=== PATIENT | female | born 1975 ===

== ENCOUNTER 2017-09-26 16:07 | Inpatient (IN) | payer MEDICAID, SELFPAY ==
[2017-09-26] MEDS ORDERED: Lactated Ringer's 1,000 ML IV ONE (17:25)
[2017-09-26 17:56] LABS: SQUAMOUS EPITHIAL 2 /hpf (0-5); URINE BILIRUBIN NEGATIVE (NEGATIVE); URINE BLOOD NEGATIVE (NEGATIVE); URINE CLARITY Clear (Clear); URINE COLOR Yellow (YELLOW); URINE GLUCOSE (UA) NORMAL (Normal); URINE LEUKOCYTE ESTERASE 2+ Leu/uL (Negative); URINE PROTEIN NEGATIVE (NEGATIVE); URINE UROBILINOGEN NORMAL mg/dL (0.2-1.0)
[2017-09-26] MEDS ORDERED: Lactated Ringer's 1,000 ML IV SCH (18:30)
[2017-09-26] MEDS ORDERED: Sodium Citrate/Citric Acid 15 ml Sol PO ONE (19:10)
[2017-09-26] MEDS ORDERED: cefOXitin IV 2 gm in Dextrose 2 GM/50 ML BAG IVPB ONE (19:10)
[2017-09-26 19:38] LABS: BASO % 0.3 % (0.0-2.0); EOS # 0.1 K/uL (0.0-0.7); EOS % 1.2 % (0.0-4.0); HEMOGLOBIN 10.7 g/dL (11.0-16.0); LYMPH % 18.4 % (20.0-40.0); MEAN CELL VOLUME 91.5 fL (81.0-99.0); MEAN CORPUSCULAR HEMOGLOBIN 30.8 pg (27.0-31.0); MEAN CORPUSCULAR HGB CONC 33.7 g/dL (33.0-37.0); MEAN PLATELET VOLUME 10.7 fL (7.2-11.7); MONO # 0.8 K/uL (0.0-0.8); NEUT # 7.9 K/uL (1.8-7.0); NEUT % 73.1 % (50.0-75.0); NRBC % 0.1 % (0.0-2.0); RBC 3.48 Mil/uL (3.80-5.20); RED CELL DISTRIBUTION WIDTH 13.4 % (11.5-14.5); WHITE BLOOD COUNT 10.8 K/uL (4.8-10.8)
--- NOTE | 2017-09-26 19:46 | OBADHP ---
Datetime: 09/26/2017 17:36 IP Chief Complaint Other: Previous del with C/S; AMA; UTI; Rh(-) Admit Comment, IP Provider: [place] [id number] Patient is a 42 y.o. , LMP unsure, PHIL 10/07/17, EGA 38w 3d by sono 07/24/17 at 29w 2d, c/o c tx; onset 3 days ago, stronger as of 0130 hours, pain scale 8/10 and occurring every 20 minutes. (+) AFM; denies LOF, VB. care: [facility]; late registrant at 26+ weeks; AMA; h/o delive ry with previous C/S. P Ob: x 2: both females, 1993, 7 1/2lb. 1995, 8lb; both, [place]. C/S, 2000, "6months", male, 2lb; also in [facility]. Spont Ab x 2: 2010, 2 mnths, 2017, 4 months, both with D_C. P PUMPER GAGER: 11 x monthly x 3. Denies h/o STIs, myomata, abnormal Pap or ovarian cysts. PMH: denies PSH: C/S x 2; D_C x 2; 2010, bilateral breast implants NKDA Meds: PNV Soc Hx: denies tobacco, illicit drug or EtOH use. With FOB x 2 years (he is in [place]). Amara dill's children also in [place]. Lives with a friend. Unemployed Fam Hx: Mother alive 71 y.o. HTN. Father alive 74 - prostate cancer. Pat aunt - h/o filiberto st cancer. P.E.: as above. WD in obvious discomfort with contractions. Awake, alert, oriented to time, person and place. Pleasant and cooperative Assessment: 42 y.o. P2123, 38w 6d, by third trimestre ultrasound, late registrant. AMA. H/O preter m delivery with C/S. Ultrasound noted for anterior placenta; placental lakes noted - no clinical sign ificance. Rh(-), s/p rhogam 07/31/17. UTI - diagnosed during visit 09/25/17; not yet started p.o. antibiotics. Category 1 tracing. Patient is clinically stable. Plan: 1) IVFs 2) U/A 3) Observe Addendum: 1915 hours - U/A: leuk esterase 3+; ketones 1+ - patient still c/o Ctx - pain scale 8/10. Abdomen is firm to palpaiton with each contraction. Deo e D/W MFM, Dr. Nuno: he cofirms placental lakes is of no significance; and recommends delivery a t this time. Briseyda Britt R.N. now served as casey saw operator Assessment: 42 y.o. P2123, 38w 6d, prev C/S x 1 with previous delivery; uterine ctx - not improved with hydration - for repeat C/S. AMA; Rh(-). UTI. Patient desires permanent sterilization: papers signed 07/31/17 and reaffirmed today. R/B/C of procedures discussed; patient expressed an under standing and her questions were answered. Consents signed, dated, witnessed and placed in chart. Cat egory 1 tracing. Clinically stable. Plan: 1) Admit 2) NPO 3) IVFs 4) continuous EFM 5) Abdominal prep 6) Owusu 7) Mefoxin, now and total of 3 doses 8) Notify anesthesia 9) Notify peds 10) call center nurse to O.R. Pelvic Type - PN: Adequate Extremities - PN: Normal Abdomen - PN: Abnormal Back - PN: Normal Breast - PN: Normal Lungs - PN: Normal Heart - PN: Normal Thyroid - PN: Not Done Neurologic - PN: Normal HEENT - PN: Normal General - PN: Normal Presentation-Admit: Vertex FHR - Baseline A Provider: 135 Contraction Comments Provider: irregular Comments, ACOG Physical Exam: Skin: (+) tattooes: left clavicle, lower abdomen. Breasts: no scars (scars from breast inplants are in the axillae, bilaterally) Abdomen: Gravid. Firm with contractions. Non tender when relaxed. Healed mini midline vertical ski n incision. Fundal height 34 cm All other systems reviewed and are negative. Gestation - Est Wks by US: 38w 3d IP Hx Assessment: The History has been Reviewed and is Current Vital Signs Provider: Reviewed; Within Normal Limits IP Chief Complaint: Uterine contractions NICHD Variability Prov Fetus A: Moderate 6-25bpm NICHD Accel Fetus A IP Provider: [id number] FHR Category Provider Fetus A: Category I NICHD Decel Fetus A IP Provider: None Dilatation, Provider: FT Effacement, Provider: 40 Station, Provider: -3 Genitourinary Exam: Normal DTRs - PN: Normal EGA AdmitDate IP: 38.3 IP Adm Impression: Term, intrauterine ; No Active Labor; Intact Membranes IP Admit Plan: Admit to unit; Initiate Section protocol
[2017-09-26 19:53] LABS: ALB/GLOB RATIO 1.2 (1.0-2.1); ALBUMIN 3.5 g/dL (3.5-5.0); ALT/SGPT 25 U/L (9-52); AST/SGOT 27 U/L (14-36); BLOOD UREA NITROGEN 6 mg/dL (7-17); CALCIUM 8.6 mg/dl (8.6-10.4); GFR AFRICAN-AMERICAN > 60; GFR NON-AFRICAN AMERICAN > 60
[2017-09-26] MEDS ORDERED: Sodium Citrate/Citric Acid 15 ml Sol ONE (20:02)
[2017-09-26] MEDS ORDERED: cefOXitin IV 2 gm in Saline 2 GM/50 ML BAG IVPB ONE (20:02)
[2017-09-26] MEDS ORDERED: Oxytocin 20 units in LR 2,000 ML IV ONE (20:04)
[2017-09-26] MEDS ORDERED: Morphine 1 mg/ml preservative-free Inj(Duramorph) ONE (20:57)
[2017-09-26] MEDS ORDERED: Midazolam 2 MG/2 ML VIAL ONE ×2 (22:00→22:06)
[2017-09-26] MEDS ORDERED: Oxycodone/Acetaminophen 5/325 mg Tab PO PRN ×2 (22:55)
[2017-09-26] MEDS ORDERED: Potassium Chloride 20 mEq ER Tab PO SCH (23:15)
--- NOTE | 2017-09-26 23:16 | PCM.SURG1 ---
Surgeon's Initial Post Op Note - Surgeon's Notes Surgeon: Babita Mandujano MD Field Coil Winder: Eric Patterson MD Type of Anesthesia: Spinal Anesthesia Administered By: Julita Reed MD Pre-Operative Diagnosis: 38 weeks 6 days; uterine contractions; previous section; previous delivery; advanced maternal age; Rh (-) Operative Findings: Live male , SAJI position, 's 7/8; weight 6lb 11oz. Cord pH 7.22. Normal uterus; normal fallopian tubes and ovaries, bilaterally. Post-Operative Diagnosis: Same; S/P bilateral tubal ligatoin Operation Performed: LTCS; modified Bea procedure Specimen/Specimens Removed: Right and left fallopian tubes Estimated Blood Loss: EBL {In ML}: 800 (U.O. 150 mL; IVFss 2,000 mL) Blood Products Given: N/A Drains Used: No Drains Post-Op Condition: Good Date of Surgery/Procedure: 09/26/17 Time of Surgery/Procedure: 22:30
--- NOTE | 2017-09-26 23:29 | OBDS ---
DELIVERY PERSONNEL Delivery Doctor: Abiodun Mandujano MD Scrub Nurse: Freda Buenrostro OBT Spar Finisher: Christina Britt RN Anesthesiologist: Lourdes Reed MD MATERNAL INFORMATION Delivery Anesthesia: Spinal Medications in Delivery: Pitocin Estimated Blood Loss (ml): 800 Placenta Cultured: No Maternal Complications: None RN Comments: live baby boy born via repeat c/section Provider Comments: Uncomplicated repeat C/S with BTL; live male , 's 7/8. Weight 6lb 110 z. LABOR SUMMARY EDC: 10/07/2017 00:00 No. Babies in Womb: 1 Attempted: No Labor Anesthesia: None LABOR INFORMATION Reason for Induction: Not Applicable Onset of Labor: 09/26/2017 14:00 Oxytocin: N/A Group B Beta Strep: Negative Steroids Given: None Reason Steroids Not Administered: Not Applicable MEMBRANES Membranes Rupture Method: Artificial Rupture of Membranes: 09/26/2017 21:20 Length of Rupture (hrs): 0.02 Amniotic Fluid Color: Clear Amniotic Fluid Amount: Moderate STAGES OF LABOR Stage 3 hrs: 0 Stage 3 min: 2 Total Time in Labor hrs: 7 Total Time in Labor min: 23 VAGINAL DELIVERY Episiotomy: None Laceration Extension: N/A Laceration Type: None CSECTION DELIVERY Primary Indication: Repeat Elective CSection Urgency: Elective CSection Incidence: Repeat Labor: Labor Elective: Elective CSection Incision: Lower Uterine Transverse Sterilization Procedure: [place] Uterine Closure: Single-layer closure BABY A INFORMATION Infant Delivery Date/Time: 09/26/2017 21:21 Method of Delivery: Born in Route : No : N/A Forceps: N/A Vacuum Extraction: N/A Shoulder Dystocia : No SHOULDER DYSTOCIA BABY A Infant Delivery Date/Time: 09/26/2017 21:21 PRESENTATION/POSITION BABY A Presentation: Cephalic Cephalic Presentation: Vertex Vertex Position: Right Occipital Anterior Breech Presentation: N/A PLACENTA INFORMATION BABY A Placenta Delivery Time : 09/26/2017 21:23 Placenta Method of Delivery: Manual Removal Placenta Status: Delivered SCORES BABY A Heart Rate 1 min: >100 bpm Resp Effort 1 min: Slow, Irregular Reflex Irritability 1 min: Grimace Muscle Tone 1 min: Active Motion Color 1 min: Body [place], Extremities Blue Resuscitation Effort 1 min: Tactile Stimulation; Oxygen SCORE 1 MIN: 7 Heart Rate 5 min: >100 bpm Resp Effort 5 min: Good Cry Reflex Irritability 5 min: Grimace Muscle Tone 5 min: Active Motion Color 5 min: Body [place], Extremities Blue Resuscitation Effort 5 min: Tactile Stimulation; Oxygen SCORE 5 MIN: 8 INFANT INFORMATION BABY A Gestational Age at Delivery: 38.3 Gestational Status: Term Infant Outcome : Liveborn Infant Condition : Stable Infant Sex: Male IDENTIFICATION/MEDS BABY A ID Band Number: [id number] ID Band Location: Right Leg; Left Leg Sensor Applied: Yes Sensor Number: [id number] Sensor Location : Cord Clamp Vitamin K Given : Aquamephyton 1 mg IM; Left Thigh Erythromycin Given: Given Both Eyes WEIGHT/LENGTH BABY A Infant Birthweight (gms): 3045 Infant Weight (lb): 6 Infant Weight (oz): 11 Length Inches: 19.50 Length cms: 49.5 CORD INFORMATION BABY A No. Cord Vessels: 3 Nuchal Cord : N/A Cord Blood Taken: Yes Infant Suction: Mouth; Nose; Pharynx ASSESSMENT BABY A Infant Complications: None Physical Findings at Delivery: Within Normal Limits Respirations: Grunting Power Generation Engineer/ALS Called : Yes Infant Care By: caty lassiter Transferred To: Nursery
[2017-09-27] MEDS: DiphenhydrAMINE 50 mg/ml Inj IVP PRN ×3 (01:51→22:54)
[2017-09-27] MEDS ORDERED: cefOXitin IV 2 gm in Saline 2 GM/50 ML BAG IV SCH (04:35)
[2017-09-27] MEDS: cefOXitin 2 GM in Sodium Chloride 0.9% 100 ML IV SCH ×3 (05:12→21:15)
[2017-09-27 07:18] LABS: BASO % 0.3 % (0.0-2.0); EOS % 0.2 % (0.0-4.0); HEMOGLOBIN 8.1 g/dL (11.0-16.0); LYMPH # 1.6 K/uL (1.0-4.3); LYMPH % 11.1 % (20.0-40.0); MEAN CELL VOLUME 91.6 fL (81.0-99.0); MEAN CORPUSCULAR HEMOGLOBIN 31.9 pg (27.0-31.0); MEAN CORPUSCULAR HGB CONC 34.8 g/dL (33.0-37.0); MEAN PLATELET VOLUME 10.5 fL (7.2-11.7); NEUT # 11.9 K/uL (1.8-7.0); NEUT % 81.4 % (50.0-75.0); RBC 2.54 Mil/uL (3.80-5.20); WHITE BLOOD COUNT 14.6 K/uL (4.8-10.8)
[2017-09-27] MEDS: Simethicone 80 mg Chewtab PO SCH ×4 (10:00→21:26)
[2017-09-27] MEDS: Prenatal Multivit/Folic Acid/Iron Tab PO SCH (10:01)
[2017-09-27] MEDS: Potassium Chloride 20 mEq ER Tab PO SCH ×2 (10:01→14:00)
--- NOTE | 2017-09-27 10:56 | OP ---
PROCEDURE DATE: 09/26/2017 PREOPERATIVE DIAGNOSES: A 38-week 6-day gestation, previous section with uterine contractions and a history of previous delivery, advanced maternal age, Rh negative. POSTOPERATIVE DIAGNOSES: A 38-week 6-day gestation, previous section with uterine contractions and a history of previous delivery, advanced maternal age, Rh negative, status post bilateral tubal ligation. OPERATION PERFORMED: Transverse lower uterine segment section and modified Bea procedure. SURGEON: Babita Mandujano MD BACK END ENGINEER: Eric Patterson MD ANESTHESIA TYPE: Spinal. ANESTHESIOLOGIST: Melinda Ramires MD OPERATIVE FINDINGS: Live male from the right occipital anterior position, Apgars of 7 and 8 at one and five minutes respectively. Weight 6 pounds 11 ounces. Cord pH was 7.22. Normal uterus and normal fallopian tubes and ovaries bilaterally. SPECIMEN: Right and left fallopian tubes. ESTIMATED BLOOD LOSS: 800 mL. URINE OUTPUT: 150 mL. INTRAVENOUS FLUIDS: 2000 mL. BLOOD PRODUCTS GIVEN: None. DRAINS: None. COMPLICATIONS: None. PROCEDURE: The patient was taken to the operating room after having obtained informed consent for the anticipated procedure. This included a discussion of possible risks and complications including but not limited to infection requiring antibiotics, hemorrhage requiring blood transfusion, repair of any damage to internal organs, possible hysterectomy, as well as possibility of failed permanent sterilization. The patient expressed an understanding and all her questions were answered. Consent forms were signed, dated, witnessed, and placed in the chart. The patient had an indwelling Owusu catheter inserted under sterile conditions in LDR-1 and Mefoxin 2 gm IV piggyback was given prior to the patient being escorted to the operating room. In the operating room, on the table, she was placed in a sitting position where a spinal anesthesia was administered without incident. The patient was immediately repositioned into a supine position with a left lateral tilt. The abdomen was prepped, and she was subsequently draped in the usual sterile fashion. After assuring adequate level of spinal anesthesia, incision was made on the skin using a scalpel. The incision was carried down through the subcutaneous tissue using the Bovie electrocautery. The fascia was identified, it was nicked in the midline, and the incision was extended bilaterally also using the Bovie electrocautery. The rectus muscle was dissected off the overlying fascia. The rectus muscle was then in the midline by a sharp dissection and the peritoneal cavity was entered. The vesicouterine reflection was identified and the bladder flap was created. A transverse incision was made on the lower uterine segment using the scalpel. Amniotomy was performed, and a moderate amount of clear amniotic fluid was retrieved. Atraumatic delivery of the occurred with the findings as above. On the operative field, the 's mouth and nose were bulb suctioned, and the umbilical cord was doubly clamped and cut. The was handed off the operative field to the vehicle refinisher in attendance. A segment of the cord was obtained for cord pH analysis, results as above. The placenta was then extracted via manual extraction. It was noted to be grossly normal with three vessels present in the cord, although the umbilical cord was quite edematous. The uterus was exteriorized for closure, and this was done in one layer using 1-0 Vicryl in a running fashion. Additional sutures of [id number] were placed using initially 2-0 Monocryl and then the 0 Monocryl to assure adequate hemostasis. A layer of FloSeal was then applied along the uterine incision and the bladder flap was reapproximated. Prior to this, examination of the posterior aspect of the uterus revealed the findings as above. Attention was then directed to the fallopian tubes. The right fallopian tube was grasped in the mid portion using a Waldo clamp. Two free ties were applied using 0 plain catgut. The intervening mesosalpinx was pierced, and the intervening segment of fallopian tube was excised. The specimen was then submitted to Pathology for further identification. Hemostasis was assured on the ligated ends using the Bovie electrocautery. A similar procedure was performed on the left fallopian tube after assuring adequate hemostasis. It was at this point the bladder flap was reapproximated with a layer of FloSeal being applied along the uterine incision prior to reapproximating the bladder flap. Copious irrigation had been performed. The uterus was then returned to the abdominal cavity, and the paracolic gutters were cleared of all debris. The remaining amount of FloSeal was used and was applied along the area of reapproximation of the bladder flap. The parietal peritoneum was reapproximated in the midline using 2-0 chromic. The muscle was reapproximated in the midline using 2-0 chromic. The subcutaneous tissue was approximated using 0 plain catgut in a running manner, and the skin was reapproximated using a subcuticular stitch using 4-0 Monocryl. Steri-Strips were applied and a pressure dressing was applied. The patient was then repositioned in a frog-leg manner. Bimanual massage was performed, and the uterus was evacuated of all additional clots. The uterus was firm and contracted and noted to be about 1 fingerbreadth below the umbilicus. The patient was then transferred back to [facility] in a stable condition. Babita MD Delbert
[2017-09-27 12:41] LABS: MEAN CELL VOLUME 91.8 fL (81.0-99.0); MEAN CORPUSCULAR HEMOGLOBIN 31.1 pg (27.0-31.0); MEAN CORPUSCULAR HGB CONC 33.9 g/dL (33.0-37.0); MEAN PLATELET VOLUME 10.2 fL (7.2-11.7); RBC 2.18 Mil/uL (3.80-5.20); RED CELL DISTRIBUTION WIDTH 13.2 % (11.5-14.5)
[2017-09-27 12:48] LABS: HEMOGLOBIN 6.8 g/dL (11.0-16.0)
[2017-09-27 12:57] LABS: BLOOD UREA NITROGEN 5 mg/dL (7-17); CALCIUM 7.9 mg/dl (8.6-10.4); GFR AFRICAN-AMERICAN > 60; GFR NON-AFRICAN AMERICAN > 60
[2017-09-27 12:58] LABS: ALB/GLOB RATIO 1.1 (1.0-2.1); ALBUMIN 2.4 g/dL (3.5-5.0); ALT/SGPT 27 U/L (9-52); AST/SGOT 30 U/L (14-36)
[2017-09-27 23:26] VITALS: RESP 20
[2017-09-28] MEDS: cefOXitin 2 GM in Sodium Chloride 0.9% 100 ML IV SCH (05:02)
[2017-09-28] MEDS: Simethicone 80 mg Chewtab PO SCH ×2 (10:30→14:42)
[2017-09-28] MEDS: Prenatal Multivit/Folic Acid/Iron Tab PO SCH (10:30)
[2017-09-28 11:51] LABS: BASO % 0.3 % (0.0-2.0); EOS # 0.1 K/uL (0.0-0.7); EOS % 1.2 % (0.0-4.0); HEMOGLOBIN 8.3 g/dL (11.0-16.0); LYMPH # 1.6 K/uL (1.0-4.3); MEAN CELL VOLUME 92.9 fL (81.0-99.0); MEAN CORPUSCULAR HEMOGLOBIN 31.3 pg (27.0-31.0); MEAN CORPUSCULAR HGB CONC 33.7 g/dL (33.0-37.0); MEAN PLATELET VOLUME 10.2 fL (7.2-11.7); MONO # 1.2 K/uL (0.0-0.8); MONO % 9.7 % (0.0-10.0); NEUT # 9.5 K/uL (1.8-7.0); NEUT % 75.8 % (50.0-75.0); RBC 2.65 Mil/uL (3.80-5.20); RED CELL DISTRIBUTION WIDTH 13.5 % (11.5-14.5); WHITE BLOOD COUNT 12.5 K/uL (4.8-10.8)
--- NOTE | 2017-09-28 18:40 | OBDCSUM ---
Datetime: 09/28/2017 13:12 Discharged to, Provider: Home Follow up at, Provider: [facility] Disch Instr Activity: Normal activity; May Shower Disch Instr Diet: Regular Discharge Instructions, Provider: Routine instructions given Discharge Diagnosis, Provider: Term Delivered Discharge Time: 09/28/2017 14:00 Follow up in weeks, Provider: 10/03/17 Disch Referrals: None Contraception discussed, Prov: No Disch Activity Restrictions: No exercising; Minimize stair-climbing; No sexual activity; Nothing in vagina - [place], tampons, douche Discharge Diagnosis Prov Other: Advanced maternal age Late to care Status post repeat section Status post bilateral tubal ligation Acute bloos loss anemia, symptomatic Status post blood transfusion
[2017-09-28 21:31] VITALS: BP 110/60; PULSE 101; TEMP 98; O2SAT 99
== END 2017-09-28 16:10 | disposition home or self-care (01) | DRG 765 ==
LOC: C.EROB 16:07 → C.4D 19:10 → C.4M 09-27 01:15
PROVIDERS: ADMIT Obstetrics & Gynecology; ATTEND Obstetrics & Gynecology
PROC: 10D00Z1 Extraction of Products of Conception, Low, Open Approach (ICD-10-PCS; principal; 2017-09-26)
PROC: 0UB70ZZ Excision of Bilateral Fallopian Tubes, Open Approach (ICD-10-PCS; 2017-09-26)
DX: O99.02 Anemia complicating childbirth (principal); O75.3 Other infection during labor; N39.0 Urinary tract infection, site not specified; D62 Acute posthemorrhagic anemia; Z37.0 Single live birth; O34.211 Maternal care for low transverse scar from previous cesarean delivery; Z30.2 Encounter for sterilization; Z3A.38 38 weeks gestation of pregnancy; Z98.82 Breast implant status